=== PATIENT | male | born 1985 | race Two or more races ===

== ENCOUNTER 2016-07-04 23:56 | Emergency (ER) | payer SELFPAY ==
[~2016-07-04] VITALS: Ht 160 cm; Wt 63.5 kg
[~2016-07-04 23:56] MED LIST: CIPRO500 MG PO; NKM; OMEPRAZOLE20 M2 ORAL; OMEPRAZOLE20 M3 ORAL; ONDANSETRON ODT4 MG ORAL; PHENERGAN25 M1 ORAL; PRILOSEC20 MG ORAL; PROTONIX40 MG ORAL; RANITIDINE HCL150 MG ORAL; ZANTAC150 MG PO; ZOFRAN ODT4 MG ORAL; ZOFRAN4 MG ORAL; [UNRECOGNIZED DRUG - REMARK]
[2016-07-05] MEDS ORDERED: Morphine Sulfate 4mg/ml Inj IVP ONE (00:15)
[2016-07-05 00:20] VITALS: BP 150/74
[2016-07-05 00:23] LABS: EOSINOPHILS % (AUTO) 2.8 % (0.0-3.0); LYMPHOCYTES % (AUTO) 31.1 % (20.0-45.0); MEAN CORPUSCULAR HEMOGLOBIN 30.8 PG (27.0-31.0); MEAN CORPUSCULAR HGB CONC 34.7 G/DL (32.0-36.0); MEAN CORPUSCULAR VOLUME 89 FL (80-99); MEAN PLATELET VOLUME 5.9 FL (6.5-10.1); PLATELET COUNT 262 K/UL (150-450); RED BLOOD COUNT 5.31 M/UL (4.70-6.10); RED CELL DISTRIBUTION WIDTH 10.6 % (11.6-14.8); WHITE BLOOD COUNT 9.9 K/UL (4.8-10.8)
[2016-07-05 00:38] LABS: ALANINE AMINOTRANSFERASE 16 U/L (3-41); ALBUMIN/GLOBULIN RATIO 1.6 (1.0-2.7); ANION GAP 14 (5-15); ASPARTATE AMINO TRANSFERASE 20 U/L (5-40); CALCIUM 9.2 mg/dL (8.6-10.2); CARBON DIOXIDE 27 mEQ/L (20-30); CHLORIDE 99 mEQ/L (98-107); CREATININE 0.9 mg/dL (0.7-1.2); GLOMERULAR FILTRATION RATE > 60 mL/min (>60); HEMOLYSIS 8; LIPASE 70 U/L (< 60); POTASSIUM 3.5 mEQ/L (3.4-4.9); SODIUM 140 mEQ/L (135-145); TOTAL PROTEIN 6.8 g/dL (6.6-8.7)
[2016-07-05] MEDS ORDERED: fentaNYL 100 mcg/2 mL IV ONE ×2 (01:08→01:15)
[2016-07-05 02:21] VITALS: BP 134/86
[2016-07-05] MEDS: LORazepam Inj 2mg/ml 1ml IV ONE ×2 (02:58→03:05)
[2016-07-05] MEDS: fentaNYL 100 mcg/2 mL IV ONE ×2 (03:01→03:05)
--- NOTE | 2016-07-05 03:33 | Emergency Room Report ---
History of Present Illness General Chief Complaint: Abdominal Pain Source: Patient Present Illness HPI 30YOM presents with sharp periumbilical abd pain, non-radiating, 10/10 after eating "mediterranean food" associated with nausea/vomiting, diarrhea. Denies previous PMHx or PSHx. Denies drug use. Denies urinary complaints. Allergies: Coded Allergies: No Known Allergies (Unverified , 02/15/12) Patient History Past Medical History: none Past Surgical History: none Pertinent Family History: none Social History: Denies: alcohol use, drug use, smoking Immunizations: UTD Reviewed Nursing Documentation: PMH: Agreed, PSxH: Agreed Nursing Documentation-PMH Past Medical History: No Stated History Hx Cardiac Problems: No Hx Cancer: No Hx Gastrointestinal Problems: Yes - GASTRITIS Hx Neurological Problems: No Review of Systems All Other Systems: negative except mentioned in HPI Physical Exam Vital Signs Date Time Temp Pulse Resp B/P Pulse Ox O2 Delivery O2 Flow Rate FiO2 07/05/16 00:03 97.5 69 16 151/103 100 Room Air Sp02 EP Interpretation: reviewed, normal General Appearance: normal inspection, well appearing, alert, GCS 15, non-toxic , moderate distress, other - Writhing on stretcher, dry heaving Head: normocephalic, atraumatic Eyes: bilateral eye EOMI, bilateral eye PERRL ENT: normal ENT inspection, hearing grossly normal, normal voice Neck: normal inspection, full range of motion, supple, no bony tend Respiratory: normal inspection, lungs clear, normal breath sounds, no respiratory distress, no retraction, no wheezing Cardiovascular #1: regular rate, rhythm, no edema Gastrointestinal: normal inspection, normal bowel sounds, non tender, soft, non -distended, no guarding, no hernia, no pulsatile mass, no rebound, other - Distended suprapubic area Genitourinary: no CVA tenderness Musculoskeletal: normal inspection, back normal, normal range of motion, Candelario' s Sign negative Neurologic: normal inspection, alert, oriented x3, responsive, belt dresser III-XII nml as tested, motor strength/tone normal, speech normal Psychiatric: normal inspection, judgement/insight normal, mood/affect normal Skin: normal inspection, normal color, no rash Lymphatic: normal inspection Medical Decision Making Diagnostic Impression: Primary Impression: Abdominal pain Additional Impressions: Drug seeking behavior Urinary obstruction Marijuana abuse ER Course Low suspicion for acute pathology as patient's HR has remained ~60 and normotensive despite writhing on the stretcher and c/o abd pain throughout the night. Patient observed repeatedly forcing himself to vomit in the ED but only dry heaving. Labs: No leuks. H&H stable. Lipase mildly elevated. LFTs, bili normal. Utox : ?? UA without infection CTAP shows persistent bladder wall thickening also seen on 08/2013 CT. Also possible colitis. No SBO or free air. No appy. No pancreatitis. Patient was requiring multiple doses of narcotics in the ED Moya was placed for distended bladder and ?obstruction with >1L urine drained from bladder Review of EMR shows MULTIPLE visits here for abdominal pain similar to arlin' s presentation along with documented history of Rx for narcotics, opioid dependance and cocaine abuse. I do not suspect opioid withdrawal as vitals have remained stable - not tachycardic or hypertensive and no piloerection. In any case, he was given morphine and fentanyl in the ED for initial presentation of severe pain. Also marijuana cyclic vomiting/pain also on the differential. At time of DC, patient had stopped vomiting. Ambulated out of ER on his own power - asking us to charge his cell phone. It is difficult to discern if patient is exhibiting drug seeking behavior or actually has chronic urinary retention issues. I wanted to DC with Moya w/leg bag with instructions to followup with Urology for further evaluation for ?chronic urinary retention but patient refused to keep Moya in. Was DCed with recommendation for Urology followup. Last Vital Signs Date Time Temp Pulse Resp B/P Pulse Ox O2 Delivery O2 Flow Rate FiO2 07/05/16 02:21 60 17 134/86 100 Room Air 07/05/16 00:44 97.6 Status: improved Disposition: HOME, SELF-CARE Referrals: [facility]/,REFERRING (PCP) MISTY MOORE M.D. Jul 05, 2016 03:33
[2016-07-05 04:08] LABS: APPEARANCE,URINE CLEAR; KETONES,URINE 3+ (NEGATIVE); LEUKOCYTE ESTERASE ,URINE NEGATIVE (NEGATIVE); NITRITE,URINE NEGATIVE (NEGATIVE); PH,URINE 9 (4.5-8.0); PROTEIN,URINE NEGATIVE (NEGATIVE); UROBILINOGEN,URINE NORMAL MG/DL (0.0-1.0)
[2016-07-05 04:27] VITALS: BP 121/79
--- NOTE | 2016-07-05 15:21 | Diagnostic Imaging Report ---
Clinical Indication: Abdominal pain Technique: No oral contrast utilized, per emergency room physician request IV administration nonionic contrast. Venous phase spiral acquisition obtained through the abdomen and pelvis. Multiplanar reconstructions were generated. Total dose length product 614 mGycm. CTDIvol(s) 12 mGy. Dose reduction achieved using automated exposure control Comparison: 09/20/2013 Findings: The appendix is normal. No evidence of diverticulosis or diverticulitis. No small bowel distention. There is very questionable thickening of the transverse colon, probably artifact of under distention No free or loculated intraperitoneal air or fluid. Distal esophagus, stomach, duodenum are unremarkable. The liver, gallbladder, bile ducts, pancreas, spleen, adrenals, kidneys are unremarkable. No mesenteric or retroperitoneal mass or adenopathy. No pelvic mass or adenopathy. Equivocal minimal bladder wall thickening is noted. The included lung bases are clear. The bones are unremarkable No significant interim change Impression: Equivocal minimal bladder wall thickening, if real could indicate mild cystitis or chronic outlet obstruction Equivocal transverse colon wall thickening, most likely an artifact of under distention, colitis a possibility if real Otherwise unremarkable This agrees with the preliminary interpretation provided overnight by [facility]erad[facility] service. The CT scanner at [facility] is accredited by the [employer] and the scans are performed using protocols designed to limit radiation exposure to as low as reasonably achievable to attain images of sufficient resolution adequate for diagnostic evaluation.
== END 2016-07-05 04:29 | disposition home or self-care (01) ==
LOC: EMR 07-05 00:15
DX: R10.9 Unspecified abdominal pain (principal); Z76.5 Malingerer [conscious simulation]; N13.9 Obstructive and reflux uropathy, unspecified; F12.10 Cannabis abuse, uncomplicated
CPT/HCPCS: 36415; 74177; 80053; 80300; 81003; 83690; 85025; 96360; 96374; 96375; 99284; J2270; J2405; J3010; Q9967